=== PATIENT | male | born 1990 | race Two or more races ===

== ENCOUNTER → 2017-10-16 | Outpatient (CLI) | payer OTHER ==
--- NOTE | 2017-10-16 11:58 | RADIOLOGY REPORT (SQ) ---
EXAM DESCRIPTION: FOOT RIGHT COMPLETE COMPLETED DATE/TIME: 10/16/2017 11:49 am REASON FOR STUDY: M20.11 HALLUX VALGUS (ACQUIRED), RIGHT FOOT M20.11 HALLUX VALGUS (ACQUIRED), RIGH T FOOT COMPARISON: None. NUMBER OF VIEWS: Three views. TECHNIQUE: AP, lateral and oblique standing radiographic images acquired of the right foot. LIMITATIONS: None. FINDINGS: MINERALIZATION: Normal. BONES: No acute fracture or dislocation. No worrisome bone lesions. JOINTS: There is hallux valgus deformity at the 1st metatarsophalangeal joint. Flattening of the jez ntar arch. Bulky bony spurring at the talonavicular joint. SOFT TISSUES: No soft tissue swelling. No foreign body. OTHER: No other significant finding. IMPRESSION: Hallux valgus deformity. Flattening of the plantar arch. Prominent osteophyte off the talus at the talonavicular joint TECHNICAL DOCUMENTATION: JOB ID: [id number] [employer]- All Rights Reserved
== END ==
LOC: OD 11:28
PROVIDERS: ATTEND Podiatrist Foot & Ankle Surgery
DX: M20.11 Hallux valgus (acquired), right foot (principal)